=== PATIENT | female | born 2000 | race African-American/Black ===

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

== ENCOUNTER 2018-07-25 11:38 | Inpatient (IN) | payer MEDICARE, OTHER ==
[2018-07-25] MEDS ORDERED: TUBERCULIN PPD 5 TU/0.1ML SYRINGE (IN PATIENT USE ONLY) ID ONE (12:33)
[2018-07-25] MEDS ORDERED: AMPICILLIN - 2 GM in SODIUM CHLORIDE 100 ML IVPB ONE (13:00)
[2018-07-25] MEDS ORDERED: AMPICILLIN SODIUM 2 GM VIAL ONE (13:11)
[2018-07-25] MEDS ORDERED: ONDANSETRON 4 MG/2 ML VIAL IVPUSH PRN (13:23)
[2018-07-25 13:37] LABS: BASO % 0.7 % (0-2.0); EOS % 0.4 % (0-4.5); HEMATOCRIT 33.4 % (32.4-45.2); HEMOGLOBIN 11.1 GM/dL (10.7-15.3); LYMPH % 13.4 % (8-40); MCH 27.3 pg (25.7-33.7); MCHC 33.2 g/dl (32.0-36.0); MEAN CELL VOLUME 82.4 fl (80-96); MEAN PLT VOLUME 10.8 fl (7.5-11.1); NEUT % 77.5 % (42.8-82.8); PLATELET COUNT 101 K/MM3 (134-434); RBC 4.05 M/mm3 (3.60-5.2); RDW 15.7 % (11.6-15.6); RETICULOCYTES 2.65 % (0.5-1.5); WHITE BLOOD COUNT 11.1 K/mm3 (4.0-10.0)
[2018-07-25] MEDS ORDERED: ELECTROLYTE-148 SOLN 1,000 ML IV SCH ×2 (13:45→14:45)
[2018-07-25 13:51] VITALS: BMI 29.5
[2018-07-25 14:00] LABS: ALBUMIN 2.7 g/dl (3.4-5.0); BILIRUBIN,TOTAL 0.8 mg/dL (0.2-1); CALCIUM 8.3 mg/dL (8.5-10.1); CREATININE 0.6 mg/dL (0.55-1.3); TOT PROT 6.2 g/dl (6.4-8.2); URIC ACID 3.9 mg/dL (2.6-7.2)
[2018-07-25 14:02] LABS: INR 0.92 (0.83-1.09); PROTHROMBIN TIME (PATIENT) 10.9 SEC (9.7-13.0)
[2018-07-25 14:05] LABS: ACTIVATED PTT 28.7 SECONDS (25.2-36.5)
[2018-07-25] MEDS ORDERED: morphine SULFATE/Preservative Free 0.5 MG/ML (1cc Syringe) ONE (14:34)
[2018-07-25] MEDS ORDERED: PHENYLEPHRINE HCL 10 MG/1 ML SINGLE DOSE VIAL ONE (14:37)
[2018-07-25] MEDS ORDERED: KETOROLAC TROMETHAMINE 30 MG/1 ML VIAL ONE ×3 (14:37→18:12)
[2018-07-25] MEDS ORDERED: ceFAZolin SODIUM 1 GM VIAL ONE (14:37)
[2018-07-25] MEDS ORDERED: CITRIC ACID/SODIUM CITRATE 30 ML UNIT-DOSE CUP PO ONE (14:38)
[2018-07-25] MEDS ORDERED: METHYLERGONOVINE MALEATE 0.2 MG/1 ML AMP IM PRN (14:38)
--- NOTE | 2018-07-25 14:38 | HP ---
Admitting History and Physical - Admission Chief Complaint: Term preg. srom. h/o trich History of Present Illness: 17 y/o with prior cs for repeat. Presents to l n d with complaints of srom, headache. Pt of triston. Poor historian. states take one or two pills per day for htn. Spoke with pt about vs repeat cs and will proceed with cs. 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: No: Alzheimer's, CVA, Dementia, Migraine, Multiple Sclerosis, Peripheral Neuropathy, Parkinson's, Seizure, Syncope, TIA, Vertigo, Other Cardiovascular: No: AFIB, Aneurysm, Aortic Insufficiency, Aortic Stenosis, CAD, CHF, Deep Vein Thrombosis, HTN, Hyperlipdemia, CT, Mitral Insufficiency, Mitral Stenosis, Murmur, Pulmonary Hypertension, Other Pulmonary: No: Asthma, Bronchitis, Cancer, COPD, O2 Dependent, Pneumonia, Previously Intubated, Pulmonary Embolus, Pulmonary Fibrosis, Sleep Apnea, Other Gastrointestinal: No: Ascites, Cancer, Constipation, Crohn's Disease, Diverticulitis, Diverticulosis, Esophageal Varices, Gastritis, GERD, GI Bleed, Hemorrhoids, Hiatal Hernia, Inflamatory Bowel Disease, Irritable Bowel Disease, Pancreatitis, Peptic Ulcer Disease, Ulcerative Colitis, Other Hepatobiliary: No: Cirrhosis, Cholelithiasis, Cholecystitis, Choledocholithiasis , Hepatitis A, Hepatitis B, Hepatitis C, Other Renal/: No: Renal Failure, Renal Inusuff, BPH, Cancer, Hematuria, Hemodialysis , Neurogenic Bladder, Renal Calculi, UTI, Other Reproductive: No: Ectopic , Endometriosis, Fibroids, PID, Polycystic Ovary Syndrome, Postmenopausal, Other ...: 4 ...Para: 1 Heme/Onc: No: Anemia, B12 Deficiency, Bleeding Disorder, Cancer, Current Chemotherapy, Current Radiation Therapy, Hemochromatosis, Hypercoaguable State, Myeloproliferative Synd, Sickle Cell Disease, Sickle Cell Trait, Thrombocytopenia, Other Infectious Disease: No: AIDS, C-Diff, Herpes Zoster, HIV, MRSA, STD's, Tuberculosis, VREF, Other Psych: No: Addictions, Anxiety, Bipolar, Depression, Panic, Psychosis, Schizophrenia, Other Musculoskeletal: No: Bursitis, Chronic low back pain, Hemiparesis, Hemiplegia, Osteoarthritis, Paraplegia, Other Rheumatology: No: Fibromyalgia, Gout, Lupus, Rheumatoid Arthritis, Sarcoidosis, Vasculitis, Other ENT: No: Allergic Rhinitis, Sinusitis, Other Endocrine: No: Lyons's Disease, Guilderland's Disease, Diabetes Insipidus, Diabetes Mellitus, Hyperparathyroidism, Hyperthyroidism, Hypothyroidism, Osteopenia, SIADH, Other Dermatology: No: Basal Cell, Cellulitis, Eczema, Melanoma, Psoriasis, Squamous Cell, Other - Past Surgical History Past Surgical History: No: None, AAA Repair, AICD, Amputation, Appendectomy, Arthrosocopy, AV Fistula/Graft, Bariatric Surgery, Breast Biopsy, Bypass, CABG, Carotid Endarterectomy, Cataract Removal, Cholecystectomy, Colectomy, Colonoscopy, Colostomy, Craniotomy, , Cystectomy, Hernia Repair, Hysterectomy, Ileal Conduit, Ileosotomy, Joint Replacement, Kidney Transplant, Laminectomy, Liver Transplant, Mastectomy, Nephrectomy, Oopherectomy, Orchiectomy, Permanent Pacemaker, Prostatectomy, Splenectomy, Stent, Thoracotomy , TURP, Tonsillectomy, Tubal Ligation, Upper Endoscopy, Valve Replacement, Vasectomy, Vein Stripping/Ligation - Advance Directives Advance Directives: No: Living Will, Health Care Proxy, DNR, Organ Donor, Tissue Donor, MOLST - Smoking History Smoking history: Former smoker Have you smoked in the past 12 months: No If you are a former smoker, when did you quit?: 1 YEAR AGO - Alcohol/Substance Use Hx Alcohol Use: No - Social History Usual Living Arrangement: No: Alone, With Spouse, With Parent, With Significant Other, With Child, Assisted Living, [facility], Other Home Medications - Allergies Allergies/Adverse Reactions: Allergies Allergy/AdvReac Type Severity Reaction Status Date / Time latex Allergy Verified 07/25/18 13:23 - Home Medications Home Medications: Ambulatory Orders 19 Tablet 1 tab PO DAILY 07/25/18 Review of Systems - Review of Systems Constitutional: reports: No Symptoms Eyes: reports: No Symptoms HENT: reports: No Symptoms Neck: reports: No Symptoms Cardiovascular: reports: No Symptoms Respiratory: reports: No Symptoms Gastrointestinal: reports: No Symptoms Genitourinary: reports: No Symptoms Musculoskeletal: reports: No Symptoms Integumentary: reports: No Symptoms Neurological: reports: No Symptoms Endocrine: reports: No Symptoms Hematology/Lymphatic: reports: No Symptoms Psychiatric: reports: No Symptoms Physical Examination Vital Signs: Vital Signs Temperature 99.4 F 07/25/18 13:30 Pulse Rate 85 07/25/18 13:30 Respiratory Rate 20 07/25/18 13:30 Blood Pressure 161/104 H 07/25/18 13:30 O2 Sat by Pulse Oximetry (%) Constitutional: Yes: Well Nourished Eyes: Yes: WNL HENT: Yes: WNL Neck: Yes: WNL Cardiovascular: Yes: WNL Respiratory: Yes: WNL Gastrointestinal: Yes: WNL ...Rectal Exam: Yes: WNL Renal/: Yes: WNL Breast(s): Yes: WNL Extremities: Yes: WNL Neurological: Yes: WNL ...Motor Strength: WNL Psychiatric: Yes: WNL Labs: CBC, BMP 07/25/18 13:10 07/25/18 13:10 Assessment/Plan as above will admit labs will starrt on mg so4 pp
[2018-07-25] MEDS ORDERED: OXYTOCIN 10 UNITS/ML VIAL ONE (14:40)
[2018-07-25] MEDS ORDERED: MAGNESIUM 4GM/H20 - 4 GM/100 ML IVPB IVPB SCH (14:45)
[2018-07-25] MEDS ORDERED: MAGNESIUM SULFATE 20GM/500ML - 20 GM/500 ML INFUS.BAG IVPB SCH (14:45)
[2018-07-25] MEDS ORDERED: METOPROLOL TARTRATE 5 MG/5 ML VIAL ONE (15:27)
[2018-07-25] MEDS ORDERED: AMPICILLIN - 1 GM in SODIUM CHLORIDE 100 ML IVPB SCH (17:00)
[2018-07-25 17:13] LABS: PH,URINE 7.5 (5.0-8.0); URINE APPEARANCE CLEAR; URINE BILIRUBIN NEGATIVE (NEGATIVE); URINE COLOR YELLOW; URINE GLUCOSE (UA) NEGATIVE (NEGATIVE); URINE KETONE NEGATIVE (NEGATIVE); URINE LEUK ESTERASE NEGATIVE (NEGATIVE); URINE NITRITE NEGATIVE (NEGATIVE); URINE PROTEIN TRACE (NEGATIVE)
[2018-07-25 17:24] LABS: COCAINE, UR NEGATIVE ng/ml (CUTOFF=300); METHADONE, UR NEGATIVE ng/ml (CUTOFF=300); OPIATES, URI NEGATIVE ng/ml (CUTOFF=300); PHENCYCLIDINE,URINE NEGATIVE ng/ml (CUTOFF=25); URINE AMPHETAMINES NEGATIVE ng/ml (CUTOFF=500); URINE BARBITURATES NEGATIVE ng/ml (CUTOFF=200); URINE BENZODIAZEPINES NEGATIVE ng/ml (CUTOFF=200)
[2018-07-25] MEDS ORDERED: MAGNESIUM SULFATE 20GM/500ML - 20 GM/500 ML INFUS.BAG ONE (17:33)
[2018-07-25] MEDS ORDERED: KETOROLAC TROMETHAMINE 30 MG/1 ML VIAL IVPUSH ONE (17:48)
[2018-07-25] MEDS ORDERED: LABETALOL HCL 100 MG TABLET (FP) ONE (19:12)
[2018-07-25] MEDS: LABETALOL HCL 100 MG TABLET (FP) PO SCH ×2 (19:15→22:00)
[2018-07-25] MEDS ORDERED: OXYTOCIN 20 UNITS in 0.9% NS 20 UNIT/1,000 ML INFUS.BAG IV ONE (20:06)
[2018-07-25] MEDS: OXYTOCIN 20 UNITS in 0.9% NS 20 UNIT/1,000 ML INFUS.BAG IV SCH (20:10)
[2018-07-26] MEDS ORDERED: OXYTOCIN 20 UNITS in 0.9% NS 20 UNIT/1,000 ML INFUS.BAG IV ONE ×2 (02:05→11:32)
[2018-07-26] MEDS ORDERED: LABETALOL HCL 100 MG TABLET (FP) ONE (02:06)
[2018-07-26] MEDS ORDERED: MAGNESIUM SULFATE 20GM/500ML - 20 GM/500 ML INFUS.BAG ONE (02:06)
[2018-07-26 03:25] LABS: BASO % 0.7 % (0-2.0); EOS % 0.9 % (0-4.5); HEMATOCRIT 26.1 % (32.4-45.2); HEMOGLOBIN 8.7 GM/dL (10.7-15.3); LYMPH % 13.4 % (8-40); MCH 27.5 pg (25.7-33.7); MCHC 33.4 g/dl (32.0-36.0); MEAN CELL VOLUME 82.6 fl (80-96); MEAN PLT VOLUME 10.2 fl (7.5-11.1); PLATELET COUNT 82 K/MM3 (134-434); RBC 3.16 M/mm3 (3.60-5.2); RDW 15.4 % (11.6-15.6); WHITE BLOOD COUNT 12.8 K/mm3 (4.0-10.0)
[2018-07-26] MEDS ORDERED: IBUPROFEN 600 MG TABLET (FP) PO ONE (05:43)
[2018-07-26] MEDS: IBUPROFEN 600 MG TABLET (FP) PO PRN ×2 (05:46→16:35)
[2018-07-26] MEDS: LABETALOL HCL 100 MG TABLET (FP) PO SCH ×3 (05:48→22:05)
[2018-07-26 06:39] LABS: HBsAG SCREEN Negative (Negative)
[2018-07-26] MEDS ORDERED: ACETAMINOPHEN INJECTION 100 ML IVPB ONE (08:27)
[2018-07-26] MEDS: ACETAMINOPHEN 1000 MG/100 ML VIAL (NON FORMULARY) IVPB PRN ×2 (08:30→21:09)
[2018-07-26] MEDS: SIMETHICONE 80 MG TAB.CHEW (FP) PO PRN ×2 (09:00→21:10)
--- NOTE | 2018-07-26 11:15 | PN ---
Progress Note (short form) - Note Progress Note: Anesthesiology Post-op POD#1 s/p C/S under spinal anesthesia. Pt. still being monitored for elevated BP; current BP high but stable. Pt. is on Labetalol. No complaints, no anesthesia-related acute issues. 17 y.o. woman with -induced hypertension but otherwise stable post-op course. Continue management per primary team.
[2018-07-26] MEDS: OXYTOCIN 20 UNITS in 0.9% NS 20 UNIT/1,000 ML INFUS.BAG IV SCH (12:00)
[2018-07-26] MEDS ORDERED: BISACODYL 10 MG SUPP.RECT RC PRN (14:39)
--- NOTE | 2018-07-26 16:33 | PN ---
Post Progress Note - Subjective Subjective: bp stable on labetalol tid Post Day: 1 Type of Delivery: Repeat C/S Vital Signs: Vital Signs Temperature 98 F 07/26/18 12:00 Pulse Rate 96 H 07/26/18 13:55 Respiratory Rate 18 07/26/18 15:00 Blood Pressure 122/76 07/26/18 13:55 O2 Sat by Pulse Oximetry (%) 100 07/25/18 16:40 Breast Exam: Yes: Soft Uterus: Yes: Fundus Firm Incision: Yes: Dressing dry and intact Abdomen/GI: Yes: Abdomen soft Lochia: Yes: Rubra Lochia, amount: Small Extremities: Yes: Calves non-tender Perineum: Yes: Intact Activity: Ambulating - Labs Labs: CBC WBC 12.8 K/mm3 (4.0-10.0) H 07/26/18 03:00 RBC 3.16 M/mm3 (3.60-5.2) L 07/26/18 03:00 Hgb 8.7 GM/dL (10.7-15.3) L 07/26/18 03:00 Hct 26.1 % (32.4-45.2) L D 07/26/18 03:00 MCV 82.6 fl (80-96) 07/26/18 03:00 MCH 27.5 pg (25.7-33.7) 07/26/18 03:00 MCHC 33.4 g/dl (32.0-36.0) 07/26/18 03:00 RDW 15.4 % (11.6-15.6) 07/26/18 03:00 Plt Count 82 K/MM3 (134-434) L 07/26/18 03:00 MPV 10.2 fl (7.5-11.1) 07/26/18 03:00 Absolute Neuts (auto) 9.8 K/mm3 (1.5-8.0) H 07/26/18 03:00 Neutrophils % 77.0 % (42.8-82.8) 07/26/18 03:00 Lymphocytes % 13.4 % (8-40) 07/26/18 03:00 Monocytes % 8.0 % (3.8-10.2) 07/26/18 03:00 Eosinophils % 0.9 % (0-4.5) D 07/26/18 03:00 Basophils % 0.7 % (0-2.0) 07/26/18 03:00 Nucleated RBC % 0 % (0-0) 07/26/18 03:00 Retic Count 2.65 % (0.5-1.5) H 07/25/18 13:10 Assessment/Plan as above pain control oob continue labaetalol
[2018-07-26] MEDS: ACETAMINOPHEN 325 MG TABLET (FP) PO PRN (16:35)
[2018-07-27] MEDS: ACETAMINOPHEN 325 MG TABLET (FP) PO PRN ×4 (05:16→21:39)
[2018-07-27] MEDS: LABETALOL HCL 100 MG TABLET (FP) PO SCH ×3 (06:05→21:39)
[2018-07-27] MEDS: IBUPROFEN 600 MG TABLET (FP) PO PRN ×3 (09:31→21:39)
[2018-07-27] MEDS ORDERED: DIPHTH,PERTUSS(ACELL),TET 0.5 ML DISP.SYRIN IM ONE (10:00)
[2018-07-27 15:14] LABS: RUBELLA IgG ANTIBODY 3.83 index (Immune >0.99)
[2018-07-27] MEDS: SIMETHICONE 80 MG TAB.CHEW (FP) PO PRN (21:39)
[2018-07-28] MEDS: LABETALOL HCL 100 MG TABLET (FP) PO SCH ×2 (05:31→14:02)
[2018-07-28 07:46] LABS: BASO % 0.5 % (0-2.0); HEMATOCRIT 25.7 % (32.4-45.2); HEMOGLOBIN 8.6 GM/dL (10.7-15.3); LYMPH % 12.6 % (8-40); MCH 27.8 pg (25.7-33.7); MCHC 33.5 g/dl (32.0-36.0); MEAN CELL VOLUME 83.1 fl (80-96); MEAN PLT VOLUME 10.6 fl (7.5-11.1); MONO % 7.3 % (3.8-10.2); NEUT % 77.6 % (42.8-82.8); PLATELET COUNT 131 K/MM3 (134-434); RBC 3.09 M/mm3 (3.60-5.2); RDW 15.7 % (11.6-15.6); WHITE BLOOD COUNT 12.5 K/mm3 (4.0-10.0)
--- NOTE | 2018-07-28 11:33 | DS ---
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 Vital Signs: Vital Signs Temperature 98.5 F 07/28/18 08:35 Pulse Rate 85 07/28/18 08:35 Respiratory Rate 18 07/28/18 08:35 Blood Pressure 139/94 07/28/18 08:35 O2 Sat by Pulse Oximetry (%) 100 07/25/18 16:40 Constitutional: Yes: Well Nourished Eyes: Yes: Conjunctiva Clear HENT: Yes: Atraumatic Neck: Yes: Supple Cardiovascular: Yes: Regular Rate and Rhythm Respiratory: Yes: Regular Gastrointestinal: Yes: Normal Bowel Sounds ...Rectal Exam: Yes: Other Labs: CBC, BMP 07/28/18 07:00 07/25/18 13:10 Delivery - Delivery Type of Anesthesia: Spinal EBL (cc): 500 Delivery, Single - Stages of Labor Date of Delivery: 07/25/18 Time of Delivery: 15:27 Time Placenta Delivered: 15:28 - Condition of Infant Teaching Associate/Mottle Lay Up Operator Present: Yes Name: Catrachito Prather Infant Gender: Female Weight: 7 lb 1 oz Position: Left, OA Total Hours ROM (Hrs/Mins): 4 HRS 43 MIN - 1 Minute Total Score: 9 5 Minutes Total Score: 9 - Feeding Plan Initial Plan: Elected not to breastfeed exclusively throughout hospitalization Discharge Summary Reason For Visit: LABOR Procedures: Principal: Repeat low transverse Hospital Course: Routine post op care Condition: Stable - Instructions Diet, Activity, Other Instructions: Regular Diet Continue your blood pressure medicine; follow up in one week for a blood pressure check Disposition: HOME - Home Medications Comprehensive Discharge Medication List: Ambulatory Orders 19 Tablet 1 tab PO DAILY 07/25/18 Ibuprofen 600 mg PO Q6H PRN #30 tablet 07/27/18
[2018-07-28] MEDS: IBUPROFEN 600 MG TABLET (FP) PO PRN (14:03)
[2018-07-28 14:07] VITALS: BP 147/96; PULSE 77; TEMP 98.9
--- NOTE | 2018-08-15 10:31 | OP ---
DATE OF OPERATION: DATE OF DICTATION: 08/14/2018 HISTORY OF PRESENT ILLNESS: This is a gravid female who presents to the hospital in labor requesting repeat section. POSTOPERATIVE DIAGNOSIS: This is a gravid female who presents to the hospital in labor requesting repeat section. PROCEDURE: Repeat section. OPERATING SURGEON: Lico Guerra MD ANESTHESIA: Spinal anesthesia. COMPLICATIONS: None. ESTIMATED BLOOD LOSS: 600 mL. DISPOSITION: To recovery room in stable, alert condition. URINE OUTPUT: Catheterized specimen. DESCRIPTION OF PROCEDURE: Patient was consented prior to entering the operating suite. Patient was put on the table in the dorsal supine position, prepped and draped in the usual sterile fashion. A low Pfannenstiel incision was carried down to the previous, was then undertaken. The fascia was then transected. The muscle was then seen and split digitally. The gravid uterus then identified. A transverse incision was made. A gush of fluid was then seen. The infants head was then delivered atraumatically to the incision. The body was to follow. The cord was then clamped and cut. The was then handed off to the awaiting biomass plant manager. At this time, the inferior aspect of the uterus was cleaned with a semi-wet lap pad. The right and left paracolic gutters were inspected, and no gross bleeding was identified. At this time, the uterus was then repaired in a double layer with 0 Vicryl suture. The peritoneum with the muscle was then approximated. The fascia was then closed. The Campers/Scarpas layer was then approximated. The skin was then closed. The patient was sent to the recovery room in stable alert condition. LICO GUERRA M.D. [id number]
--- NOTE | 2018-08-24 11:13 | PATH ---
Surgical Pathology Report Patient Name: JONATHAN GRANT Med. Rec. #: [id number] /Age/Gender: 2000 (Age: 17) / F Account: [id number] Location: 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 Specimen(s) Received PLACENTA Clinical History 02/09, repeat preeclampsia Final Diagnosis PLACENTA, SECTION: 379 G THIRD TRIMESTER PLACENTA WITH TRIVASCULAR UMBILICAL CORD AND UNREMARKABLE PLACENTAL MEMBRANES. Electronically Signed Fang Hugo M.D. Gross Description The specimen is received fresh labeled placenta and is a 379 gram, 17.0 x 13.5 x 2.3 cm. placenta with attached membranes and umbilical cord. The attached membranes are jhaveri, translucent with focal opacities and insert marginally. The umbilical cord measures 23 cm. in length and averages 0.9 cm. in diameter. The cord inserts centrally. No true knots or strictures are identified. Cut surface of the umbilical cord reveals 3 vessels. The surface is becerra blue with moderate fibrin deposition and appropriate caliber vessel. The maternal surface is red-brown with focal defects. Sectioning reveals red-brown, spongy parenchyma. No lesions are identified. Sole Rougher sections are submitted in three cassettes as follows: 1- membrane rolls and umbilical cord; 2-3- full thickness sections of placenta. /07/27/2018 saudi/07/27/2018
== END 2018-07-28 15:00 | disposition home or self-care (01) | DRG 540 ==
LOC: JDEL 11:38 → JLDR 12:10 → J3W 07-26 11:45
PROVIDERS: ADMIT Obstetrics & Gynecology; ATTEND Obstetrics & Gynecology
PROC: 10D00Z1 Extraction of Products of Conception, Low, Open Approach (ICD-10-PCS; principal; 2018-07-25)
DX: O13.4 Gestational [pregnancy-induced] hypertension without significant proteinuria, complicating childbirth (principal); O34.219 Maternal care for unspecified type scar from previous cesarean delivery; Z3A.39 39 weeks gestation of pregnancy; Z37.0 Single live birth
CPT/HCPCS: 36415; 80053; 80307; 81003; 82977; 83010; 83735; 84550; 85025; 85044; 85610; 85730; 86593; 86762; 86850; 86900; 86901; 87340; 87389; 88307-TC; 90715; J0131